=== PATIENT | male | born 2000 ===

== ENCOUNTER 2023-09-07 08:39 | Outpatient (AMB) | payer OTHER, SELFPAY ==
--- NOTE | 2023-09-07 08:53 | AM.OFFWIN_ITS ---
Intake Vital Signs 09/07/23 09:01 Height 5 ft 8 in Weight 245 lb BMI 37.2 BP 110/60 Blood Pressure Location Lt brachial Position Sitting Pulse 96 Pulse Source Pulse Oximeter Temp 98.5 F Temp Source Temporal Artery Scan Pulse Oximetry (%) 96 Oxygen Delivery Method Room Air Intake Visit Reasons: [employer]/fever dry cough ([phone]) Intake Note: pt is here today for fever dry cough started tuesday Patient Tobacco Use Status: Current everyday Tobacco user Allergies No Known Allergies Allergy (Verified 09/07/23 08:53) Do you need a note to return to daycare/school/sports/work: Yes HPI [employer]/fever dry cough ([phone]) HPI Details This is a 23-year-old male patient who presents today with 2 days of fever, chills, body aches, and productive cough. He states that his girlfriend has similar symptoms and was seen here at the clinic yesterday, and tested positive for the flu. [facility] Social History Patient Tobacco Use Status: Current everyday Tobacco user Review of Systems Const All systems reviewed & are unremarkable except as noted in HPI and below Physical Exam Vital Signs: Last Vital Signs Temp 98.5 F 09/07/23 09:01 Pulse 96 09/07/23 09:01 BP 110/60 09/07/23 09:01 Pulse Ox 96 09/07/23 09:01 Oxygen Delivery Method Room Air 09/07/23 09:01 BMI result Body Mass Index 37.2 Const General: cooperative and no acute distress HEENT Head: Yes normal to inspection Ears: hearing grossly normal bilaterally Neck Neck: Yes no lymphadenopathy Resp Effort & Inspection: normal respiratory effort, able to speak in complete sentences and Actively coughing Quality: productive Auscultation: clear to auscultation bilaterally Cardio Jugular venous distension: no JVD Palpation: normal PMI Rate: regular rate Rhythm: abnormal rhythm Skin General skin exam: no rashes or lesions noted Extrem General: Yes capillary refill normal and Yes no clubbing, cyanosis or edema Psych Appearance: grossly normal Mental Status: mental status grossly normal Assessment & Plan Assessment & Plan (1) Exposure to the flu: Code(s): Z20.828 - Contact with and (suspected) exposure to other viral communicable diseases Plan: This patient has symptoms consistent with the flu, and has close exposure to flu+ contact (girlfriend). Viral swab obtained and patient will be notified of results once these are available. Will send Tamiflu. Reviewed with patient indications, use, possible s/e. Also recommended conservative measures with rest, increased hydration, otc cold/flu products as needed for symptomatic treatment. He should return to the clinic if he does not improve with treatment. He agrees to plan. (2) Dry cough: Code(s): R05.8 - Other specified cough Plan: Treatment as above. Orders: Orders SARS-CoV2/FLU/RSV Today R05.8 - Other specified cough, Z20.828 - Contact with and (suspected) exposure to other viral communicable diseases Medications: New oseltamivir 75 mg PO BID 5 days 10 caps 0RF J10.1 - Influenza due to other identified influenza virus with other respiratory manifestations Coding Level of Care Code Est Pt Level 3 (50225) Diagnoses Exposure to the flu Z20.828 Dry cough R05.8
[2023-09-07 09:01] VITALS: BP 110/60; PULSE 96; TEMP 36.9; O2SAT 96; BMI 37.2
== END 2023-09-07 09:54 | disposition home or self-care (01) ==
PROVIDERS: Visit Provider Nurse Practitioner Family
DX: Z20.828 Contact with and (suspected) exposure to other viral communicable diseases (principal); R05.8 Other specified cough
CPT/HCPCS: 99213

== ENCOUNTER 2023-09-07 09:27 | Outpatient (REF) | payer OTHER, SELFPAY ==
[2023-09-07 12:45] LABS: Influenza A PCR POSITIVE (Negative); Influenza B PCR NEGATIVE (Negative); Resp Syncy Virus RNA Qual PCR NEGATIVE (Negative); SARS COV2 PCR INHOUSE NEGATIVE (Negative)
== END 2023-09-07 09:28 | disposition home or self-care (01) ==
LOC: HO.LAB 09:27
PROVIDERS: Visit Provider Nurse Practitioner Family
DX: Z11.52 Encounter for screening for COVID-19 (principal); Z20.822 Contact with and (suspected) exposure to COVID-19; R05.8 Other specified cough
CPT/HCPCS: 0241U